=== PATIENT | female | born 1975 | race African-American/Black ===

== ENCOUNTER 2021-12-18 05:03 | Inpatient (IN) | payer OTHER ==
[2021-12-16 16:21] VITALS: BMI 25.9
[2021-12-18] MEDS ORDERED: BUPIVACAINE LIPOSOME/PF (EXPAREL) 266 MG/20 ML VIAL ONE (11:52)
[2021-12-18] MEDS ORDERED: GLYCOPYRROLATE 0.2 MG/1 ML VIAL ONE (13:26)
[2021-12-18] MEDS ORDERED: PROPOFOL 20 ML ONE ×2 (13:26)
[2021-12-18] MEDS ORDERED: ROCURONIUM BROMIDE 50 MG/5 ML SYRINGE ONE (13:27)
[2021-12-18] MEDS ORDERED: NEOSTIGMINE METHYLSULFATE 0.5 MG/ML - 10 ML MDV ONE (13:27)
[2021-12-18] MEDS ORDERED: SUCCINYLCHOLINE CHLORIDE 200 MG/10 ML SYRINGE ONE (13:27)
[2021-12-18] MEDS ORDERED: MIDAZOLAM HCL 2 MG/2 ML SINGLE DOSE VIAL ONE ×2 (13:27)
[2021-12-18] MEDS ORDERED: ROCURONIUM BROMIDE 100 MG/10 ML VIAL ONE ×2 (14:37→15:16)
[2021-12-18] MEDS ORDERED: DEXAMETHASONE SOD PHOSPHATE 4 MG/1 ML VIAL ONE (14:40)
[2021-12-18] MEDS ORDERED: ceFAZolin SODIUM 1 GM VIAL IVPB ONE (14:40)
[2021-12-18] MEDS ORDERED: VASOPRESSIN 20 UNITS/ML VIAL IV ONE (14:40)
[2021-12-18] MEDS ORDERED: HYDROmorphone HCl 2 MG/ML VIAL ONE ×4 (14:42→19:18)
[2021-12-18] MEDS ORDERED: ONDANSETRON 4 MG/2 ML VIAL IVPUSH PRN (18:50)
[2021-12-18] MEDS ORDERED: ACETAMINOPHEN 1000 MG/100 ML BAG IVPB PRN (18:51)
[2021-12-18] MEDS ORDERED: HYDROmorphone HCl 2 MG/ML VIAL IVPUSH PRN ×2 (18:52→18:53)
[2021-12-18] MEDS ORDERED: oxyCODONE HCL 5 MG TABLET PO PRN (18:54)
[2021-12-18] MEDS ORDERED: LACTATED RINGERS SOLUTION 1,000 ML IV SCH (19:00)
[2021-12-18 20:08] LABS: BASO % 0.1 % (0-2.0); HEMATOCRIT 28.9 % (32.4-45.2); LYMPH % 8.6 % (8-40); MCH 27.1 pg (25.7-33.7); MCHC 34.6 g/dl (32.0-36.0); MEAN CELL VOLUME 78.5 fl (80-96); MONO % 2.9 % (3.8-10.2); NEUT % 88.4 % (42.8-82.8); PLATELET COUNT 249 10^3/uL (134-434); RBC 3.68 M/mm3 (3.60-5.2); RDW 15.8 % (11.6-15.6); WHITE BLOOD COUNT 17.3 K/mm3 (4.0-10.0)
[2021-12-18] MEDS: DEXTROSE 5%-LACTATED RINGERS 1,000 ML IV SCH (21:00)
[2021-12-18] MEDS ORDERED: HYDROmorphone HCl 2 MG/ML VIAL IVPB PRN (21:34)
[2021-12-18] MEDS: DOXYCYCLINE INJECTION 100 MG in DEXTROSE 5%-WATER 100 ML IVPB SCH (21:58)
[2021-12-18] MEDS: DOCUSATE SODIUM 100 MG CAPSULE (FP) PO SCH (23:28)
[2021-12-19] MEDS: DOCUSATE SODIUM 100 MG CAPSULE (FP) PO SCH ×2 (10:57→21:39)
[2021-12-19] MEDS: DOXYCYCLINE INJECTION 100 MG in DEXTROSE 5%-WATER 100 ML IVPB SCH ×2 (12:15→22:50)
[2021-12-19] MEDS: oxyCODONE HCL 5 MG TABLET PO PRN ×2 (14:11→19:11)
[2021-12-19] MEDS: MULTIVITAMINS (DAILY MVI) TABLET (FP) PO SCH (17:45)
[2021-12-19] MEDS: SIMETHICONE 80 MG TAB.CHEW (FP) PO PRN (19:11)
[2021-12-19] MEDS: DEXTROSE 5%-LACTATED RINGERS 1,000 ML IV SCH (20:02)
[2021-12-20] MEDS: SIMETHICONE 80 MG TAB.CHEW (FP) PO PRN ×3 (01:13→11:09)
[2021-12-20] MEDS: oxyCODONE HCL 5 MG TABLET PO PRN ×3 (01:14→21:36)
[2021-12-20 08:40] LABS: BASO % 0.1 % (0-2.0); EOS % 0.1 % (0-4.5); LYMPH % 17.3 % (8-40); MCH 27.8 pg (25.7-33.7); MCHC 35.6 g/dl (32.0-36.0); MEAN PLT VOLUME 7.9 fl (7.5-11.1); NEUT % 77.5 % (42.8-82.8); PLATELET COUNT 157 10^3/uL (134-434); RBC 2.43 M/mm3 (3.60-5.2); RDW 15.4 % (11.6-15.6); WHITE BLOOD COUNT 10.1 K/mm3 (4.0-10.0)
[2021-12-20 08:52] LABS: HEMOGLOBIN 6.8 GM/dL (10.7-15.3)
[2021-12-20] MEDS: DOCUSATE SODIUM 100 MG CAPSULE (FP) PO SCH ×2 (10:14→21:36)
[2021-12-20] MEDS: MULTIVITAMINS (DAILY MVI) TABLET (FP) PO SCH (10:14)
[2021-12-20] MEDS: FERROUS SO4 325 MG TABLET (FP) PO SCH ×2 (11:10→18:41)
[2021-12-20] MEDS: ACETAMINOPHEN 325 MG TABLET (FP) PO PRN ×3 (11:10→19:41)
[2021-12-20] MEDS: DOXYCYCLINE INJECTION 100 MG in DEXTROSE 5%-WATER 100 ML IVPB SCH ×2 (12:15→21:59)
[2021-12-20 15:44] LABS: URINE APPEARANCE CLOUDY; URINE BILIRUBIN NEGATIVE (NEGATIVE); URINE COLOR YELLOW; URINE GLUCOSE (UA) NEGATIVE (NEGATIVE); URINE KETONE NEGATIVE (NEGATIVE); URINE LEUK ESTERASE 2+ (NEGATIVE); URINE NITRITE NEGATIVE (NEGATIVE); URINE PROTEIN TRACE (NEGATIVE); URINE UROBILINOGEN 0.2 mg/dL (0.2-1.0)
[2021-12-20 15:45] LABS: URINE RBC 3.3 /uL (0-23.9)
[2021-12-20 15:46] LABS: EPI CELLS 16.2 /uL (0-25.1); HYALINE CASTS 0.64 /uL (0-3.1); URINE BACTERIA 66.2 /uL (0-1359); URINE WBC 108.6 /uL (0-25.8)
[2021-12-21] MEDS: ACETAMINOPHEN 325 MG TABLET (FP) PO PRN ×3 (06:33→17:50)
[2021-12-21] MEDS: DOCUSATE SODIUM 100 MG CAPSULE (FP) PO SCH ×2 (09:49→21:17)
[2021-12-21] MEDS: FERROUS SO4 325 MG TABLET (FP) PO SCH ×2 (09:49→17:50)
[2021-12-21 10:33] LABS: CALCIUM 8.5 mg/dL (8.5-10.1)
[2021-12-21 10:34] LABS: BLOOD UREA NITROGEN 6.4 mg/dL (7-18)
[2021-12-21 10:37] LABS: CREATININE 0.6 mg/dL (0.55-1.3)
[2021-12-21 10:38] LABS: BILIRUBIN,TOTAL 0.8 mg/dL (0.2-1); TOT PROT 6.6 g/dl (6.4-8.2)
[2021-12-21 10:41] LABS: HEMOGLOBIN 9.8 GM/dL (10.7-15.3); MCH 28.7 pg (25.7-33.7); MCHC 36.3 g/dl (32.0-36.0); MEAN CELL VOLUME 79.2 fl (80-96); PLATELET COUNT 173 10^3/uL (134-434); RBC 3.41 M/mm3 (3.60-5.2); RDW 14.7 % (11.6-15.6); WHITE BLOOD COUNT 15.1 K/mm3 (4.0-10.0)
[2021-12-21] MEDS: MULTIVITAMINS (DAILY MVI) TABLET (FP) PO SCH (11:22)
[2021-12-21] MEDS: DOXYCYCLINE INJECTION 100 MG in DEXTROSE 5%-WATER 100 ML IVPB SCH (11:22)
[2021-12-21] MEDS: SIMETHICONE 80 MG TAB.CHEW (FP) PO PRN (19:14)
[2021-12-21 21:58] VITALS: PULSE 97
[2021-12-22] MEDS: DOXYCYCLINE INJECTION 100 MG in DEXTROSE 5%-WATER 100 ML IVPB SCH ×2 (00:33→12:29)
[2021-12-22] MEDS: DOCUSATE SODIUM 100 MG CAPSULE (FP) PO SCH (09:57)
[2021-12-22] MEDS: FERROUS SO4 325 MG TABLET (FP) PO SCH (09:57)
[2021-12-22] MEDS: MULTIVITAMINS (DAILY MVI) TABLET (FP) PO SCH (10:13)
[2021-12-22 10:28] VITALS: BP 120/80; TEMP 98
[2021-12-22] MEDS ORDERED: POTASSIUM CHLORIDE ORAL LIQUID 20 MEQ/15 ML PO ONE (12:00)
== END 2021-12-22 14:45 | disposition home or self-care (01) | DRG 743 ==
LOC: J2C 05:03 → J3W 20:52
PROVIDERS: ADMIT Obstetrics & Gynecology; ATTEND Obstetrics & Gynecology
PROC: 0UB90ZZ Excision of Uterus, Open Approach (ICD-10-PCS; principal; 2021-12-18 13:30)
DX: D25.9 Leiomyoma of uterus, unspecified (principal); N92.0 Excessive and frequent menstruation with regular cycle; N97.9 Female infertility, unspecified; D50.9 Iron deficiency anemia, unspecified; R10.2 Pelvic and perineal pain
CPT/HCPCS: 36415; 36430; 80053; 81003; 81025; 85025; 85027; 86850; 86900; 86901; 86922; 87086; 88305-TC; 94760; C9803-CS; P9058; U0003; U0005